=== PATIENT | male | born 1985 | race Caucasian/White ===

== ENCOUNTER 2016-12-07 14:36 | Emergency (ER) | payer BC, OTHER ==
[~2016-12-07] VITALS: Ht 177.8 cm; Wt 85.7 kg
[2016-12-07 14:39] VITALS: TEMP 37; Ht 177.8 cm; Wt 85.7 kg
[2016-12-07 14:45] VITALS: O2SAT 97
[2016-12-07] MEDS ORDERED: ACETAMINOPHEN 500 MG TAB PO STA (14:54)
[2016-12-07] MEDS ORDERED: KETOROLAC TROMETHAMINE 30 MG/ML VIAL IV STA (14:54)
[2016-12-07] MEDS ORDERED: ALBUT/IPRATROP 3MG/0.5MG NEB 3 ML VIAL INH STA (14:54)
--- NOTE | 2016-12-07 15:01 | EMERGENCY ROOM VISIT NOTE ---
History Report prepared by Lalo: Harry Richards Under the Supervision of: Dr. Deshawn Bowers M.D. First contact with patient: 14:43 Chief Complaint: CHEST PAIN Stated Complaint: CHEST PAIN History of Present Illness The patient is a 31 year old white male with a past medical history of allergies and an appendectomy who presents to the ED with a cc of constant dull left sided chest pain beginning three weeks ago which is not worsened or improved with anything. Positive congestion and productive cough that produces yellow phlegm. Negative fever, nausea, vomiting, recent traumas, abdominal pain , leg swelling, hx of blood clots, prolonged car travels, and recent traumas. He had a bout of poison kelsey about three weeks ago, and was given steroids, and he has had the pain since then. He has taken Advil for the pain, and he does a lot of lifting for his job. He has not had his flu shot. He is an occasional smoker, drinker, and tobacco chewer. Source of History: patient Onset: three weeks Position: chest (left) Quality: dull Timing: constant Associated Symptoms: + cough, No fevers, No nausea, No vomiting, No abdominal pain Review of Systems See HPI for pertinent positives and negatives. A total of ten systems were reviewed and were otherwise negative. Past Medical & Surgical Surgical Problems: (1) History of appendectomy Social History Smoking Status: Current Some Day Smoker Marital Status: Housing Status: lives with family Occupation Status: employed Current/Historical Medications No Active Prescriptions or Reported Meds Allergies Coded Allergies: No Known Allergies (Unverified , 12/07/16) Physical Exam Vital Signs Date Time Temp Pulse Resp B/P (MAP) Pulse Ox O2 Delivery O2 Flow Rate FiO2 12/07/16 16:31 85 16 127/81 96 12/07/16 16:00 89 16 143/94 96 Room Air 12/07/16 15:18 97 12/07/16 14:51 96 Room Air 12/07/16 14:45 97 Room Air 12/07/16 14:39 37.0 106 18 145/97 97 Physical Exam GENERAL: Awake, alert, well-appearing, NAD HENT: Normocephalic, atraumatic. EYES: Normal conjunctiva. Sclera non-icteric. NECK: Supple. No nuchal rigidity. FROM. RESPIRATORY: Inspiratory and expiratory wheezes at the left lung base. CARDIAC: Tachycardic but regular, no MRG ABDOMEN: Soft, NTND, BS+ MSK: No chest wall TTP, no LE swelling, calor, erythema, or calf pain NEURO: GCS 15, CN 2-12 intact, moves all 4s on command SKIN: No rash or jaundice noted. Medical Decision & Procedures ER Provider Diagnostic Interpretation: Radiology results as stated below per my review and radiologist interpretation: CHEST ONE VIEW PORTABLE CLINICAL HISTORY: Chest pain. COMPARISON STUDY: Chest radiograph May 02, 2015. FINDINGS: Note is made of kyphotic positioning on this exam. Lung volumes are diminished. Cardiac size is likely within normal limits, accentuated on this hypoventilatory study. There is no consolidation to suggest pneumonia and there is no evidence of pulmonary edema. No pneumothorax or pleural effusion is present. IMPRESSION: 1. Hypoventilatory study. 2. No acute cardiopulmonary findings. Electronically signed by: Kody Means M.D. 12/07/2016 3:24 PM Dictated Date/Time: 12/07/2016 3:23 PM Laboratory Results 12/07/16 14:45 Red Blood Count 5.20, Mean Corpuscular Volume 82.3, Mean Corpuscular Hemoglobin 30.4, Mean Corpuscular Hemoglobin Concent 36.9, Mean Platelet Volume 9.5, Neutrophils (%) (Auto) 63.4, Lymphocytes (%) (Auto) 23.4, Monocytes (%) (Auto) 6.3, Eosinophils (%) (Auto) 4.8, Basophils (%) (Auto) 0.6, Neutrophils # (Auto) 5.48, Lymphocytes # (Auto) 2.02, Monocytes # (Auto) 0.54, Eosinophils # (Auto) 0.41, Basophils # (Auto) 0.05 12/07/16 14:45 Test 12/07/16 14:45 White Blood Count 8.63 K/uL (4.8-10.8) Red Blood Count 5.20 M/uL (4.7-6.1) Hemoglobin 15.8 g/dL (14.0-18.0) Hematocrit 42.8 % (42-52) Mean Corpuscular Volume 82.3 fL (80-100) Mean Corpuscular Hemoglobin 30.4 pg (25-34) Mean Corpuscular Hemoglobin Concent 36.9 g/dl (32-36) Platelet Count 243 K/uL (130-400) Mean Platelet Volume 9.5 fL (7.4-10.4) Neutrophils (%) (Auto) 63.4 % Lymphocytes (%) (Auto) 23.4 % Monocytes (%) (Auto) 6.3 % Eosinophils (%) (Auto) 4.8 % Basophils (%) (Auto) 0.6 % Neutrophils # (Auto) 5.48 K/uL (1.4-6.5) Lymphocytes # (Auto) 2.02 K/uL (1.2-3.4) Monocytes # (Auto) 0.54 K/uL (0.11-0.59) Eosinophils # (Auto) 0.41 K/uL (0-0.5) Basophils # (Auto) 0.05 K/uL (0-0.2) RDW Standard Deviation 36.7 fL (36.4-46.3) RDW Coefficient of Variation 12.2 % (11.5-14.5) Immature Granulocyte % (Auto) 1.5 % Immature Granulocyte # (Auto) 0.13 K/uL (0.00-0.02) Anion Gap 9.0 mmol/L (3-11) Est Creatinine Clear Calc Drug Dose 101.4 ml/min Estimated GFR () 103.9 Estimated GFR (Non- 89.6 BUN/Creatinine Ratio 11.8 (10-20) Calcium Level 9.7 mg/dl (8.5-10.1) Troponin I < 0.015 ng/ml (0-0.045) Laboratory results reviewed by me Medications Administered Medications (Trade) Dose Ordered Sig/[facility] Route Start Time Stop Time Status Last Admin Dose Admin Albuterol/ Ipratropium (Duoneb) 3 ml NOW STAT INH 12/07/16 14:54 12/07/16 14:56 DC 12/07/16 15:10 3 ML Ketorolac Tromethamine (Toradol Inj) 30 mg NOW STAT IV 12/07/16 14:54 12/07/16 14:56 DC 12/07/16 15:08 30 MG Acetaminophen (Tylenol Tab) 1,000 mg NOW STAT PO 12/07/16 14:54 12/07/16 14:56 DC 12/07/16 15:08 1,000 MG ECG Indication: chest pain Rate (beats per minute): 101 Rhythm: sinus tachycardia Findings: left axis deviation, other (Normal intervals, no STS changes or TWIs) ED Course 1443: The patient was evaluated in room A2. A complete history and physical exam was performed. 1640: I reevaluated the patient. Discussed results and discharge instructions: He verbalized understanding and agreement. The patient is ready for discharge. Medical Decision The patient is a 31 year old white male with a past medical history of allergies and an appendectomy who presents to the ED with a cc of constant dull left sided chest pain beginning three weeks ago which is not worsened or improved with anything. Positive congestion and productive cough that produces yellow phlegm. Negative fever, nausea, vomiting, recent traumas, abdominal pain , leg swelling, hx of blood clots, prolonged car travels, and recent traumas. Triage Nursing notes reviewed. The patient's presentation and history were concerning for etiologies such as cardiac ischemia, aortic dissection, pulmonary embolism, pneumonia, pneumothorax , musculoskeletal, infections, pericarditis, myocarditis, esophageal rupture, gastrointestinal, as well as others were entertained. Patient was seen and evaluated the bedside. Patient has no other risk factors with the exception of some smoking and occasional alcohol use. Patient was complaining of some persistent chest pain which is not reproducible. Patient complains of shortness of breath which occurred one week prior does not had a recurrent symptoms. Patient does not PE PRC out however he is [place] 1 and thus lower risk for PE. Patient had fairly normal EKG and negative troponin less likely ACS. Patient does have some mild a symptomatically hypertension which was told to follow PCP. Patient was given strict follow-up, discharge, return precautions. Patient agreed with plan of care patient safely discharged home. Medication Reconcilliation Current Medication List: was personally reviewed by me Blood Pressure Screening Patient's blood pressure: Elevated blood pressure Blood pressure disposition: Referred to PCP Impression Primary Impression: Encounter for smoking cessation counseling Additional Impressions: Left sided chest pain Hypertension Scribe Attestation The scribe's documentation has been prepared under my direction and personally reviewed by me in its entirety. I confirm that the note above accurately reflects all work, treatment, procedures, and medical decision making performed by me. Departure Information Dispostion Home / Self-Care Prescriptions No Active Prescriptions or Reported Meds Referrals No Doctor, Assigned (PCP) Forms HOME CARE DOCUMENTATION FORM, IMPORTANT VISIT INFORMATION Patient Instructions Chest Pain - [facility], My [facility] Additional Instructions Please return to the emergency department if you have worsening or recurrent symptoms not amenable to at-home treatment. Please call for a follow-up appointment with her primary care physician. Please take your medications as prescribed. If you have other concerns and/or complaints please feel free to also call your primary care physician's office or return the ED for further evaluation, management, and treatment. You were found to have an elevated blood pressure today (>120 sytolic or >90 diastolic). Per medicare guidelines, you need to follow up with this blood pressure screening with your Primary Care Physician (PCP). For a new PCP call [phone]. You may take 600 mg Ibuprofen every 6 hours as needed for pain with food for no more than 2 consecutive days. You may take tylenol 1000mg every 6 hours as needed for pain. You may take motrin and tylenol separately or at the same time. You have been examined and treated today on an emergency basis only. This is not a substitute for, or an effort to provide, complete comprehensive medical care. It is impossible to recognize and treat all injuries or illnesses in a single emergency department visit. It is therefore important that you follow up closely with [facility]. Call as soon as possible for an appointment. Thank you for your time and consideration. I look forward to speaking with you again soon. Please don't hesitate to call us if you have any questions. Problem Qualifiers Additional Impressions: Hypertension Hypertension type: unspecified Qualified Codes: I10 - Essential (primary) hypertension
--- NOTE | 2016-12-07 15:25 | DIAGNOSTIC IMAGING REPORT ---
CHEST ONE VIEW PORTABLE CLINICAL HISTORY: Chest pain. COMPARISON STUDY: Chest radiograph May 02, 2015. FINDINGS: Note is made of kyphotic positioning on this exam. Lung volumes are diminished. Cardiac size is likely within normal limits, accentuated on this hypoventilatory study. There is no consolidation to suggest pneumonia and there is no evidence of pulmonary edema. No pneumothorax or pleural effusion is present. IMPRESSION: 1. Hypoventilatory study. 2. No acute cardiopulmonary findings. Electronically signed by: Kody Means M.D. 12/07/2016 3:24 PM Dictated Date/Time: 12/07/2016 3:23 PM
[2016-12-07 15:28] LABS: BASO % 0.6 %; BASO ABS # 0.05 K/uL (0-0.2); COMPLETE YES; EOS % 4.8 %; HEMATOCRIT 42.8 % (42-52); IG% 1.5 %; LYMPH % 23.4 %; LYMPH ABS # 2.02 K/uL (1.2-3.4); MEAN CELL VOLUME 82.3 fL (80-100); MEAN CORPUSCULAR HEMOGLOBIN 30.4 pg (25-34); MEAN CORPUSCULAR HGB CONC 36.9 g/dl (32-36); MEAN PLATELET VOLUME 9.5 fL (7.4-10.4); MONO % 6.3 %; NEUT % 63.4 %; PLATELET COUNT 243 K/uL (130-400); WHITE BLOOD COUNT 8.63 K/uL (4.8-10.8)
[2016-12-07 15:34] LABS: BLOOD UREA NITROGEN 13 mg/dl (7-18); BUN/CREATININE RATIO 11.8 (10-20); CALCIUM 9.7 mg/dl (8.5-10.1); CARBON DIOXIDE 26 mmol/L (21-32); CHLORIDE 105 mmol/L (98-107); GLUCOSE 109 mg/dl (70-99); POTASSIUM 3.4 mmol/L (3.5-5.1); SODIUM 140 mmol/L (136-145)
[2016-12-07 16:31] VITALS: BP 127/81; PULSE 85; O2SAT 96
== END 2016-12-07 16:30 | disposition home or self-care (01) ==
LOC: C.EDB 14:37 → C.EDA 16:30
DX: R07.9 Chest pain, unspecified (principal); R00.0 Tachycardia, unspecified; I10 Essential (primary) hypertension; F17.200 Nicotine dependence, unspecified, uncomplicated; Z71.6 Tobacco abuse counseling; Z98.890 Other specified postprocedural states

== ENCOUNTER → 2016-12-13 | Outpatient (CLI) | payer BC ==
[2016-12-13 18:17] LABS: POTASSIUM 3.9 mmol/L (3.5-5.1)
== END | disposition home or self-care (01) ==
LOC: C.LABPVFM 13:28
PROVIDERS: ATTEND Family Medicine Adult Medicine
DX: Z00.00 Encounter for general adult medical examination without abnormal findings (principal); E87.6 Hypokalemia